=== PATIENT | male | born 2000 | race Caucasian/White ===

== ENCOUNTER 2021-09-25 13:24 | Emergency (ER) | payer BC, SELFPAY ==
--- NOTE | ~2021-09-25 | XR_ITS ---
EXAMINATION: XR chest 2V DATE: 09/25/2021 13:44 INDICATION: Chest pain TECHNIQUE: PA and lateral views of the chest were obtained. COMPARISON: None FINDINGS: The lungs are clear with no focal airspace opacities, pulmonary edema, pleural effusion or pneumothor ax. The cardiomediastinal silhouette is normal. Visualized bones and soft tissues are unremarkable. IMPRESSION: 1. No acute cardiopulmonary disease. Reviewed, dictated and finalized at location A. R
--- NOTE | 2021-09-25 13:27 | ECG_ITS ---
Measurements Intervals [place] Rate: 117 P: 31 MD: 154 QRS: -3 QRSD: 117 T: 48 QT: 338 QTc: 473 Interpretive Statements SINUS TACHYCARDIA INTRAVENTRICULAR CONDUCTION DELAY POOR R WAVE PROGRESSION, ANTERIOR LEADS MINIMAL Q WAVES- HIGH LATERAL LEADS ABNORMAL ECG Electronically Signed On 09-25-2021 18:44:07 [employer] by Emmanuel Gleason D.O.
[2021-09-25 13:29] VITALS: BP 162/100; PULSE 128; RESP 22; TEMP 36.3; O2SAT 98
[2021-09-25 13:49] LABS: Basophils Absolute Auto 0.1 K/mm3 (0.0-0.1); Basophils Percent Auto 0.5 % (0.2-1.2); Eosinophils Absolute Auto 0.1 K/mm3 (0-0.3); Eosinophils Percent Auto 0.8 % (0-4.4); Hematocrit 51.2 % (42.0-52.0); Hemoglobin 17.6 g/dL (14.0-18.0); Immature Granulocyte Absolute 0.02 K/mm3 (0.00-0.031); Immature Granulocyte Percent A 0.2 % (0-0.5); Lymphocytes Absolute Auto 3.42 K/mm3 (0.9-3.2); Lymphocytes Percent Auto 31.1 % (18.3-44.2); Mean Corpuscular HGB Conc 34.4 g/dl (32-36); Mean Corpuscular Hemoglobin 30.5 pg (26-34); Mean Corpuscular Volume 88.7 fl (80-100); Mean Platelet Volume 9.4 fl (7.4-10.4); Monocytes Absolute Auto 0.8 K/mm3 (0.1-0.6); Neutrophils Absolute Auto 6.6 K/mm3 (1.3-6.7); Neutrophils Percent Auto 60.4 % (45.5-73.1); Platelet Count Result 367 k/mm3 (150-375); Red Blood Count 5.77 M/mm3 (4.6-6.20); Red Cell Distribution Width 13.1 % (11.5-14.5)
[2021-09-25 14:00] LABS: INR 0.9; Partial Thromboplastin Time 25.9 SECONDS (22.3-36.8); Prothrombin Time 11.7 Seconds (11.1-14.7)
[2021-09-25 14:01] LABS: Alanine Aminotransferase 70 U/L (4-50); Albumin Level 5.4 g/dL (3.5-5.1); Alkaline Phosphatase 99 U/L (38-126); Anion Gap 11 mmol/L (8-16); Aspartate Amino Transferase 48 U/L (17-59); Bilirubin,Total 0.7 mg/dL (0.2-1.3); Blood Urea Nitrogen 12 mg/dL (9-20); Calcium 10.3 mg/dL (8.4-10.2); Carbon Dioxide 26 mmol/L (22-30); Chloride 100 mmol/L (98-107); Estimated CRCL calculation 157 ml/min; Estimated Glomerular Filt Rate > 60; Glucose 107 mg/dL (65-110); Lipase 60 U/L (23-300); Potassium 3.6 mmol/L (3.4-5.0); Sodium 137 mmol/L (137-145)
[2021-09-25 14:12] LABS: Troponin I < 0.012 ng/mL (0.000-0.034)
--- NOTE | 2021-09-25 14:19 | ED.GENADULT ---
HPI - General Adult General Chief complaint: Chest Pain Stated complaint: chest heaviness/numbness Time Seen by Provider: 09/25/21 13:48 Source: patient Mode of arrival: ambulatory Limitations: no limitations History of Present Illness HPI narrative: Patient is 21 years old white female came to the emergency room with sudden onset of dryness of the mouth, numbness of the hands, heavy feeling in the head and chest, poor concentration, within 30 minutes prior to arrival to the emergency room resolved on arrival. Patient denies any fever, chills, nausea, vomiting, difficulty breathing. Patient reports a lot of stress lately because he works for [employer] Home Medications Medication Instructions Recorded Confirmed losartan 100 mg PO DAILY 08/10/19 08/10/19 omeprazole magnesium [Prilosec OTC] 40 mg PO DAILY 08/10/19 08/10/19 hydrochlorothiazide 09/25/21 Allergies Allergy/AdvReac Type Severity Reaction Status Date / Time No Known Allergies Allergy Verified 08/10/19 08:24 Review of Systems Review of Systems: CONSTITUTIONAL: Denies fever, chills, or sweats. EYES: Denies visual changes, redness, or discharge. ENT: Denies rhinorrhea, congestion, sore throat, or otalgia. CARDIOVASCULAR: Denies chest pain, palpitations, or edema. RESPIRATORY: Denies cough or dyspnea. GASTROINTESTINAL: Denies abdominal pain, nausea, vomiting, or diarrhea. GENITOURINARY: Denies dysuria or hematuria. SKIN: Denies rash or itching. MUSCULOSKELETAL: Denies back pain, joint pain, or myalgia. NEUROLOGIC: Denies headache, numbness, or weakness. PSYCHIATRIC: Denies anxiety or depression. PMFSH Surgical History Surgical History Hx of appendectomy Social History Social History Smoking status: Never smoker Gender identity (if verbalized by the patient): Male Exam Narrative: General appearance: Well-developed, well-nourished Skin: Normal color Head: Normocephalic, nontraumatic Eyes: Clear conjunctiva ENT: Oropharynx normal, ears normal, nose normal Neck: Supple, nontender Chest and respiratory: Airway patent, no respiratory distress, no accessory muscle use Heart: Regular rate/rhythm Abdomen: Soft, nontender, no organomegaly, quiet bowel sounds Vascular: Normal peripheral pulses, normal capillary refill. Musculoskeletal: Normal range of motion, nontender back Neurologic: Alert and oriented ?3, [employer] is normal as tested, no gross motor deficit Course Course Emergency Course: Stable Patient symptoms high likely secondary to stress, and anxiety. Patient is telling me that his dad had history of depression and anxiety. Work-up did not show any findings to explain patient condition. Anxiety is my concern. Vital Signs Vital signs: Vital Signs Temperature 36.3 C L 09/25/21 13:29 Pulse Rate 128 H 09/25/21 13:29 Respiratory Rate 22 H 09/25/21 13:29 Blood Pressure 162/100 H 09/25/21 13:29 Pulse Oximetry 98 09/25/21 13:29 Temperature 36.3 C L 09/25/21 13:29 Pulse Rate 94 09/25/21 14:46 Respiratory Rate 17 09/25/21 14:46 Blood Pressure 149/88 H 09/25/21 14:46 Pulse Oximetry 98 09/25/21 14:46 Medical Decision Making Vital Signs Vital Signs: Vital Signs Temperature 36.3 C L 09/25/21 13:29 Pulse Rate 128 H 09/25/21 13:29 Respiratory Rate 22 H 09/25/21 13:29 Blood Pressure 162/100 H 09/25/21 13:29 Pulse Oximetry 98 09/25/21 13:29 Temperature 36.3 C L 09/25/21 13:29 Pulse Rate 94 09/25/21 14:46 Respiratory Rate 17 09/25/21 14:46 Blood Pressure 149/88 H 09/25/21 14:46 Pulse Oximetry 98 02
[2021-09-25 14:46] VITALS: BP 149/88; PULSE 94; RESP 17; O2SAT 98
== END 2021-09-25 14:48 | disposition home or self-care (01) ==
PROVIDERS: Emergency Provider Emergency Medicine; PCP Internal Medicine
DX: F41.9 Anxiety disorder, unspecified (principal); R00.0 Tachycardia, unspecified; I45.9 Conduction disorder, unspecified
CPT/HCPCS: 36415; 71046; 80053; 83690; 84484; 85025; 85610; 85730; 93005; 99284